=== PATIENT | female | born 1975 | race Caucasian/White ===

== ENCOUNTER 2024-09-01 17:09 | Emergency (ER) | payer OTHER, SELFPAY ==
--- NOTE | 2024-09-01 17:14 | ED.GENMED ---
History of Present Illness
General
Chief Complaint: Withdrawal Symptoms
Source: patient, records and ambulance crew
Time Seen by Provider: 09/01/24 17:13
History of Present Illness
History of Present Illness:
This patient is a 48-year-old female presents emergency department with reported generalized weakness, nausea, vomiting, and dizziness. Patient has a known dependence on methamphetamine, Valium, opiates, and alcohol. She entered [facility]
correction on Monday and is on a benzodiazepine taper. Her transfer paperwork states 'coming down on meth, opioids, Valium, alcohol'. Of note, patient had a minor fall on Monday and suffered an abrasion to her head. She has been neurologically
intact, and on neuro watch/getting neurochecks since the event. Patient states that her last use of drugs and alcohol was evening. She was placed in custody on Monday and has not used since evening. She said that she had an
episode of syncope and struck the back of her head on Monday. Since then, she complains of 'pounding' headache in the posterior occiput area that is been constant associated with intermittent episodes of lightheadedness like she is going to pass
out. She states that she has had 3-4 episodes of syncope since this event on Monday without head injury. She says she feels lightheaded and like her vision and hearing is impaired. These are unpredictable episodes not associated with chest pain,
palpitations, dyspnea, neck pain, back pain. She denies neck pain, numbness, tingling, focal weakness, diplopia, abdominal pain. Today she ate lunch as usual, but at 3 PM developed episodes of vomiting x 3. She says she thinks she might of seen
blood in her vomit. She noted blood in her urine last night, no associated urgency frequency dysuria flank pain. She also said she had a brown bowel movement yesterday that she thinks had blood in it. Patient denies history of bleeding in the
past bleeding disorder, etc.
Past History
Past History
ED Past Medical History: Other (Substance abuse)
ED Past Surgical History: Gynecological
Social History
Tobacco: Smoker
Alcohol: Chronic alcoholic
Drug: Narcotics and Other (Methamphetamine, benzodiazepines)
Personal: Single
Living: other (partner in her home)
Employment: Not employed
Family History
Family History: Unable to obtain
Phy Exam
Physical Exam
Physical Exam:
GENERAL: Alert , in no apparent distress
EYE: pupils equal and reactive, EOMI, no nystagmus, no photophobia
NECK: Supple, no significant adenopathy, no midline tenderness.
ENT: o/p clr, mm very slightly dry, no tierney, no raccoon, no hemotympanum, no signs of head or facial injury noted on exam.
CARDIAC: Regular rate and rhythm .
LUNGS: Clear breath sounds bilaterally, no acute respiratory distress, no wheezes/rales/rhonchi
ABDOMEN: Soft, without focal tenderness, no r/g
NEUROLOGICAL: Alert and oriented, no focal neuro deficits
SKIN: Warm and dry, skin intact.
MUSCULOSKELETAL: No edema, well perfused.
PSYCH: Normal and appropriate interaction.
Course
Orders/Labs/Results
Orders:
Orders
09/01/24 17:16
0.9% Sodium Chloride 500 ml [Nss] 500 ml IV BOLUS
Ondansetron Injectable [Zofran] 4 mg IV NOW STA
09/01/24 17:17
EKG [Electrocardiogram (*1)] Urgent
Reason for Study: Other
Other Reason for Exam: withdrawl
EKG- Treatment ONCE
09/01/24 17:32
CT Head W/o Iv Contrast Urgent
Comment:
Reason For Exam: [id number], head strike
09/01/24 17:38
Aspirin level [Salicylate] Urgent
Lipase Urgent
Troponin I Urgent
Tylenol [Acetaminophen] Urgent
09/01/24 18:50
Complete Blood Count/No Diff Urgent
Comprehensive Metabolic Panel Urgent
Urinalysis Reflex To Culture Urgent
Date Specimen was Collected: 09/01/24
Time Specimen was Collected: 18:42
Abnormal Lab Results
09/01/24 09/01/24
17:38 18:50
Plt Count 471 H 10^3/uL
(130-400)
Alkaline Phosphatase 129 H U/L
(38-126)
Salicylates < 1.0 L mg/dl
(2.0-20.0)
Acetaminophen < 10 L ug/ml
(10-30)
09/01/24 18:50
09/01/24 18:50
Vital Signs
Initial and Last Documented VS:
Initial Vital Signs
Resp
14
09/01/24 17:16
Last Documented Vital Signs
Pulse Resp BP Pulse Ox
70 19 111/77 100
09/01/24 18:15 09/01/24 18:15 09/01/24 17:49 09/01/24 18:15
Update Note
Update Note:
Patient presents to the Emergency Department with __nausea, vomiting, lightheadedness
Number and Complexity of Problems Addressed at the Encounter
� Chronic conditions affecting care:
� Acute Exacerbation and/or Progression of Chronic Illness:
� Differential Diagnosis includes: But not limited to withdrawal from alcohol and/or drugs, gastroenteritis, concussion, intracranial bleed, etc. etc.
Amount and/or Complexity of Data to be Reviewed and Analyzed
� I performed an independent evaluation of and my interpretation is:
EKG: Read by me, normal sinus rhythm, normal rate, normal axis, low voltage, no acute ischemia
CT: Read by radiology NAD
Xrays:
Laboratory Studies: Generally unremarkable
Other:
� Review of other/old records reveals:
� Clinical information was obtained by an independent historian: EMS, present paperwork. Patient is currently on a benzodiazepine taper.
� Prescriptions/Medications Considered but not given:
� Further testing considered but not performed:
Risk of Complications and/or Morbidity or Mortality of Patient Management
� Social determinants of health affecting care:
� Discussion with other providers (PCP, Hospitalists, Consultants, etc):
� Escalation of care including admission/observation vs risk of discharge considered: 7:48 PM workup unremarkable here. Patient states she is 'starving'. I just gave her a sandwich. Plan will be discharged to present with
continuation of her benzo taper. Clinically I highly doubt EtOH or opioid withdrawal particularly given reassuring vital signs and clinical status.
ED Attending Note
-
Portions of this chart may have been created with voice recognition software.� Occasional wrong word or��sound alike� substitutions may have occurred due to the inherent limitations of voice recognition software.
Discharge Plan
Departure
Patient Disposition: [facility]
Date of Disposition: 09/01/24
Time of Disposition: 19:48
Patient with high blood pressure during this ER visit?: No
Condition: Good
Discharge Problem:
Vomiting
Instructions: Nausea and Vomiting, Adult (DC)
Prescriptions:
No Action
Unobtainable
0
Activity Restrictions/Additional Instructions:
IF YOU DEVELOP RECURRENT VOMITING, BLEEDING, CHEST PAIN, SHORTNESS OF BREATH, OR OTHER WORRISOME SIGNS, PLEASE RETURN TO THE ER IMMEDIATELY.
Interventions
Interventions:
*Risk Screen - Suicide Last Done: 09/01/24 17:18
*General Assessment Last Done: 09/01/24 17:18
*Neglect/Abuse Screening Last Done: 09/01/24 17:18
ED- Fall Risk Assessment Last Done: 09/01/24 17:36
*ED COVID-19 Vaccine History Last Done: 09/01/24 17:18
ED- Neurological Assessment Last Done: 09/01/24 17:36
ED-Psychological Assessment Last Done: 09/01/24 17:36
Discharge Date and Time
Print Language: [id number]
[2024-09-01 17:18] VITALS: BP 111/77
[2024-09-01 17:35] VITALS: BMI 25.4
[2024-09-01] MEDS: ZOFRAN 4 MG IV (17:48)
[2024-09-01] MEDS: NSS 500 IV (17:48)
[2024-09-01 17:49] VITALS: BP 111/77
[2024-09-01 18:00] LABS: Acetaminophen < 10 ug/ml (10-30); Lipase 151 U/L (23-300); Salicylate < 1.0 mg/dl (2.0-20.0)
[2024-09-01 18:12] LABS: Troponin I < 0.012 ng/ml
[2024-09-01 19:01] LABS: Urine Albumin Negative (Neg - Trace); Urine Bilirubin Negative (Negative); Urine Character Clear (Clear); Urine Color Yellow; Urine Glucose Negative (Negative); Urine Ketone Negative (Negative); Urine Leukocyte Negative (Negative); Urine Nitrite Negative (Negative); Urine Occult Blood Negative (Negative); Urine Urobilinogen Negative (Neg - 1+)
[2024-09-01 19:21] LABS: ALT (SGPT) 17 U/L (0-35); AST (SGOT) 21 U/L (14-36); Albumin 4.6 g/dl (3.5-5.0); Alkaline Phosphatase 129 U/L (38-126); Blood Urea Nitrogen 14 mg/dl (7-17); Calcium 10.1 mg/dl (8.4-10.2); Carbon Dioxide 25 mmol/L (22-30); Chloride 103 mmol/L (98-107); Estimated Creatinine Clearance 73 ml/min; Glucose 87 mg/dl (70-99); Potassium 4.7 mmol/L (3.5-5.1); Sodium 139 mmol/L (135-145); Total Bilirubin 0.3 mg/dl (0.2-1.3); Total Protein 7.8 g/dl (6.3-8.2); eGFR > 60.00
[2024-09-01 19:22] LABS: Hemoglobin 14.1 g/dL (12.0-16.0); Mean Corp Hgb Conc. 33.6 g/dL (33.0-37.0); Mean Corpuscular Hgb 28.4 pg (27.0-31.0); Mean Corpuscular Volume 84.5 fL (81.0-99.0); Mean Platelet Volume 9.9 fL (7.4-10.4); Platelet Count 471 10^3/uL (130-400); Red Blood Cell Count 4.97 10^6/uL (4.20-5.40); Red Cell Dist. Width 13.1 % (11.5-14.5); White Blood Cell Count 10.1 10^3/uL (4.8-10.8)
== END 2024-09-01 20:08 ==
LOC: EMR 17:09
PROVIDERS: EMERGENCY PHYSICIAN Emergency Medicine
DX: R11.2 Nausea with vomiting, unspecified (principal); F15.20 Other stimulant dependence, uncomplicated; F11.20 Opioid dependence, uncomplicated; F10.20 Alcohol dependence, uncomplicated; F17.200 Nicotine dependence, unspecified, uncomplicated
CPT/HCPCS: 99285; 96374; 96361; 70450; 80053; 80143; 80179; 81003; 83690; 84484; 85027; 93005